=== PATIENT | female | born 1945 | race Caucasian/White ===

== ENCOUNTER 2017-02-27 19:22 | Emergency (ER) | payer BC ==
[2017-02-27] MEDS ORDERED: CITALOPRAM40 MG PO (19:39)
[2017-02-27] MEDS ORDERED: HCTZ 25MG25 MG PO (19:39)
[2017-02-27] MEDS ORDERED: LISINOPRIL40 MG PO (19:40)
[2017-02-27] MEDS ORDERED: VITAMIN D 400400 IU PO (19:40)
[2017-02-27] MEDS ORDERED: PRILOSEC 20MG20 MG PO (19:41)
[2017-02-27] MEDS ORDERED: CLARITIN 1010 MG/TAB PO (19:41)
[2017-02-27] MEDS ORDERED: CALCIUM CARBONA1 T10 PO (19:41)
[2017-02-27] MEDS ORDERED: FOSAMAX 70MG TA70 MG PO (19:42)
[2017-02-27] MEDS ORDERED: ALEVE220 M1 PO (19:42)
[2017-02-27] MEDS ORDERED: ZYRTEC ALLERGY10 MG PO (19:42)
[2017-02-27 20:24] VITALS: BP 126/55
== END 2017-02-27 20:24 | disposition home or self-care (01) ==
LOC: ED 19:22
DX: S80.12XA Contusion of left lower leg, initial encounter (principal); W22.09XA Striking against other stationary object, initial encounter; Y92.008 Other place in unspecified non-institutional (private) residence as the place of occurrence of the external cause

== ENCOUNTER → 2017-07-13 | Outpatient (CLI) | payer BC ==
[~2017-07-13] MED LIST: ALEVE220 M1 PO; CALCIUM CARBONA1 T10 PO; CITALOPRAM40 MG PO; CLARITIN 1010 MG/TAB PO; FOSAMAX 70MG TA70 MG PO; HCTZ 25MG25 MG PO; LISINOPRIL40 MG PO; PRILOSEC 20MG20 MG PO; VITAMIN D 400400 IU PO; ZYRTEC ALLERGY10 MG PO
== END ==
LOC: MAMMO 09:06
DX: Z12.31 Encounter for screening mammogram for malignant neoplasm of breast (principal)
CPT/HCPCS: G0202

== ENCOUNTER → 2018-08-03 | Outpatient (CLI) | payer BC | LOC: MAMMO 08:30 | DX: Z13.820 Encounter for screening for osteoporosis (principal); M85.80 Other specified disorders of bone density and structure, unspecified site; Z12.31 Encounter for screening mammogram for malignant neoplasm of breast ==

== ENCOUNTER 2019-09-09 16:56 | Emergency (ER) | payer BC ==
[2019-09-09] MEDS ORDERED: PROAIR HFA0.09 MG/AC INH (17:12)
[2019-09-09] MEDS ORDERED: NORVASC 10MG10 MG PO (17:14)
[2019-09-09] MEDS ORDERED: ASPIRIN ADULT L81 M3 PO (17:15)
[2019-09-09] MEDS ORDERED: LIPITOR20 M2 PO (17:17)
[2019-09-09] MEDS ORDERED: TESSALON PERLE100 M1 PO (17:18)
[2019-09-09] MEDS ORDERED: BENADRYL PO (17:20)
[2019-09-09] MEDS ORDERED: ABREVA10% TOP (17:21)
[2019-09-09] MEDS ORDERED: SYNTHROID25 MCG PO (17:22)
[2019-09-09] MEDS ORDERED: GLUCOPHAGE500 MG/TAB PO (17:23)
[2019-09-09] MEDS ORDERED: MAXITROL EYE O3.5 GM OU (17:25)
[2019-09-09] MEDS ORDERED: DITROPAN XL 5MG5 M1 PO (17:26)
[2019-09-09] MEDS ORDERED: ALIGN4 MG PO (17:26)
[2019-09-09] MEDS ORDERED: DICYCLOMIN10 MG/5 M1 PO (17:28)
[2019-09-09 17:49] VITALS: BP 121/68
== END 2019-09-09 17:48 | disposition home or self-care (01) ==
LOC: ED 16:56
DX: L25.9 Unspecified contact dermatitis, unspecified cause (principal); E11.9 Type 2 diabetes mellitus without complications; I10 Essential (primary) hypertension; E78.5 Hyperlipidemia, unspecified; K21.9 Gastro-esophageal reflux disease without esophagitis; Z79.84 Long term (current) use of oral hypoglycemic drugs; Z79.82 Long term (current) use of aspirin

== ENCOUNTER → 2019-09-20 | Outpatient (CLI) | payer BC ==
[2019-09-09 17:49] VITALS: BP 121/68
[~2019-09-20] MED LIST changes: +ABREVA10% TOP; +ALIGN4 MG PO; +ASPIRIN ADULT L81 M3 PO; +BENADRYL PO; +DICYCLOMIN10 MG/5 M1 PO; +DITROPAN XL 5MG5 M1 PO; +GLUCOPHAGE500 MG/TAB PO; +LIPITOR20 M2 PO; +MAXITROL EYE O3.5 GM OU; +NORVASC 10MG10 MG PO; +PROAIR HFA0.09 MG/AC INH; +SYNTHROID25 MCG PO; +TESSALON PERLE100 M1 PO
== END ==
LOC: MAMMO 14:19
DX: Z12.31 Encounter for screening mammogram for malignant neoplasm of breast (principal)

== ENCOUNTER → 2020-09-11 | Outpatient (CLI) | payer BC | LOC: MAMMO 12:42 | DX: Z12.31 Encounter for screening mammogram for malignant neoplasm of breast (principal) ==

== ENCOUNTER 2020-12-01 14:07 | Emergency (ER) | payer BC ==
[~2020-12-01] VITALS: Ht 149.9 cm; Wt 59.1 kg
[2020-12-01] MEDS ORDERED: CEPHALEXIN250 M2 PO (15:04)
[2020-12-01 15:10] VITALS: BP 140/77
== END 2020-12-01 15:10 | disposition home or self-care (01) ==
LOC: ED 14:07
DX: S50.12XA Contusion of left forearm, initial encounter (principal); L25.8 Unspecified contact dermatitis due to other agents; I10 Essential (primary) hypertension; E11.9 Type 2 diabetes mellitus without complications; F17.200 Nicotine dependence, unspecified, uncomplicated; Z79.82 Long term (current) use of aspirin; Z79.84 Long term (current) use of oral hypoglycemic drugs; W19.XXXA Unspecified fall, initial encounter; Y92.009 Unspecified place in unspecified non-institutional (private) residence as the place of occurrence of the external cause

== ENCOUNTER → 2021-06-10 | Outpatient (CLI) | payer BC ==
[~2021-06-10] MED LIST changes: +CEPHALEXIN250 M2 PO
== END ==
LOC: RAD 08:24 → MAMMO 08:30
DX: M81.0 Age-related osteoporosis without current pathological fracture (principal); M85.80 Other specified disorders of bone density and structure, unspecified site

== ENCOUNTER → 2021-10-14 | Outpatient (CLI) | payer BC | LOC: RAD 10:33 | DX: M26.649 Arthritis of unspecified temporomandibular joint (principal) ==

== ENCOUNTER → 2021-10-22 | Outpatient (CLI) | payer BC | LOC: MAMMO 09:55 | DX: Z12.31 Encounter for screening mammogram for malignant neoplasm of breast (principal) ==

== ENCOUNTER 2022-07-21 09:01 | Outpatient (RCR) | payer BC | END 2022-07-29 | disposition home or self-care (01) | LOC: PT | DX: M47.816 Spondylosis without myelopathy or radiculopathy, lumbar region (principal) ==

== ENCOUNTER 2022-07-30 07:55 | Outpatient (RCR) | payer BC | END 2022-08-25 16:27 | disposition home or self-care (01) | LOC: PT 07:55 | DX: M47.816 Spondylosis without myelopathy or radiculopathy, lumbar region (principal) ==

== ENCOUNTER → 2023-08-30 | Day surgery (SDC) | payer BC | LOC: MSO 08-23 14:55 | DX: Z12.11 Encounter for screening for malignant neoplasm of colon (principal); K63.5 Polyp of colon | CPT/HCPCS: 00811; J1920; J2704; J7120 ==

== ENCOUNTER 2025-02-09 03:11 | Emergency (ER) | payer BC ==
[~2025-02-09] VITALS: Ht 149.9 cm; Wt 61.8 kg
[2025-02-09] MEDS ORDERED: LISINOPRIL10 MG PO (03:26)
[2025-02-09] MEDS ORDERED: DONEPEZIL HCL10 MG PO (03:28)
[2025-02-09] MEDS ORDERED: Ondansetron 4 MG/2 ML VIAL IV ONE (03:30)
[2025-02-09] MEDS ORDERED: ZOFRAN ODT4 MG PO (03:39)
[2025-02-09] MEDS ORDERED: JANUVIA50 MG PO (03:46)
[2025-02-09 03:47] LABS: HEMATOCRIT 42.4 % (37.0-47.0); MEAN CELL VOLUME 92 fl (78-100); MEAN CORPUSCULAR HEMOGLOBIN 30 pg (27-31); MEAN CORPUSCULAR HGB CONC 33 g/dL (33-37); MEAN PLATELET VOLUME 9.4 fl (7.4-10.4); PLATELET COUNT 330 K/mm3 (130-400); RED BLOOD COUNT 4.63 M/mm3 (4.10-5.30); RED CELL DISTRIBUTION WIDTH 12.2 % (11.5-14.5); WHITE BLOOD COUNT 14.3 K/mm3 (4.8-10.8)
[2025-02-09 03:49] LABS: URINE APPEARANCE SLIGHTLY CLOUDY (CLEAR); URINE COLOR YELLOW (YELLOW)
[2025-02-09 03:50] LABS: PH-URINE 5.5 (5.0 - 8.0); URINE BILIRUBIN 1+ (NEGATIVE); URINE BLOOD TRACE-LYSED (NEGATIVE); URINE GLUCOSE NEGATIVE (NEGATIVE); URINE KETONE NEGATIVE (NEGATIVE); URINE LEUKOCYTE ESTERASE TRACE (NEGATIVE); URINE MUCUS PRESENT (NOT PRESENT); URINE NITRATE NEGATIVE (NEGATIVE); URINE PROTEIN(semi-quant) 1+ (NEGATIVE)
[2025-02-09 03:51] LABS: ALBUMIN 4.4 g/dL (3.4-4.8)
[2025-02-09 03:52] LABS: CALCIUM 10.5 mg/dL (8.3-10.5)
[2025-02-09 03:53] LABS: TOTAL PROTEIN 8.2 g/dL (6.2-8.1)
[2025-02-09 03:55] LABS: TOTAL BILIRUBIN 0.5 mg/dL (0.2-1.2)
[2025-02-09] MEDS ORDERED: Amoxicillin/Clavulanate K+ 875/125 MG TAB PO ONE (04:00)
[2025-02-09] MEDS ORDERED: AMOXICILLIN AND1 TA2 PO (04:02)
[2025-02-09 04:05] LABS: LYMPHOCYTE 3 % (20-51); MONOCYTE 3 % (3-10); NEUTROPHILS 93 % (42-75)
[2025-02-09 05:08] VITALS: BP 132/59
== END 2025-02-09 05:15 | disposition home or self-care (01) ==
LOC: ED 03:11
PROVIDERS: Family Medicine
DX: R11.2 Nausea with vomiting, unspecified (principal); R19.7 Diarrhea, unspecified; R35.0 Frequency of micturition; Z91.040 Latex allergy status; Z79.82 Long term (current) use of aspirin; Z87.891 Personal history of nicotine dependence; Z88.1 Allergy status to other antibiotic agents
CPT/HCPCS: J2405; J7120